=== PATIENT | male | born 1955 | race Caucasian/White ===

== ENCOUNTER 2023-07-08 12:25 | Emergency (ER) | payer MEDICARE, SELFPAY ==
[2023-07-08 12:31] VITALS: BP 174/99; PULSE 79; RESP 22; TEMP 36.4; O2SAT 97; BMI 22.8
--- NOTE | 2023-07-08 12:43 | ED_ITS ---
HPI - URI/Sore Throat General Chief Complaint: Upper Respiratory Infection Stated Complaint: THROAT PAIN Time Seen by Provider: 07/08/23 12:31 Source: patient History of Present Illness HPI Narrative: 68-year-old male presents for cough. He's been sick for almost 2 weeks and has been coughing up thick green phlegm. He was seen at an urgent care center on July 03 and was diagnosed with laryngitis. He's not had a fever. No vomiting or diarrhea. Related Data Home Medications Medication Instructions Recorded Confirmed albuterol sulfate 90 mcg/actuation 2 puff inhalation Q4H PRN 07/08/23 07/08/23 aerosol inhaler shortness of breath or wheezing amitriptyline 25 mg tablet 25 mg PO DAILY 07/08/23 07/08/23 bisoprolol 5 1 tab PO DAILY 07/08/23 07/08/23 mg-hydrochlorothiazide 6.25 mg tablet lisinopril 10 mg tablet 10 mg PO DAILY 07/08/23 07/08/23 Previous Rx's Medication Instructions Recorded benzonatate 100 mg capsule 100 mg PO TID PRN cough #20 caps 07/08/23 doxycycline hyclate 100 mg capsule 100 mg PO BID 10 days #20 caps 07/08/23 Allergies Allergy/AdvReac Type Severity Reaction Status Date / Time No Known Drug Allergies Allergy Verified 07/08/23 12:37 Review of Systems ROS Narrative A ten point review of systems is negative except as noted above. Exam Narrative Exam Narrative: Nurses note and vital signs reviewed and patient is not hypoxic. General: The patient appears well and in no apparent distress. Patient is resting comfortably on cart. Skin: Warm, dry, no pallor noted. There is no rash noted. Head: Normocephalic, atraumatic Eye: Normal conjunctiva, no drainage, EOMI. PERRL Ears, Nose, Mouth, and Throat: oral mucosa is moist. Nares patent. Mouth without vesicles. Ear canals patent. Tm's without Erythema Cardiovascular: Regular Rate and Rhythm Respiratory: Patient is in no distress, no accessory muscle use, lungs show very minimal rhonchi on the right side Back: non-tender GI: soft and nontender Musculoskeletal: The patient has no evidence of calf tenderness, no pitting edema, symmetrical pulses noted bilaterally Neurological: A&O, normal speech Psychiatric: Cooperative Constitutional Vital Signs, click to edit/add: Last Vital Signs Temp 97.5 F L 07/08/23 12:31 Pulse 79 07/08/23 12:31 Resp 22 07/08/23 12:31 BP 174/99 H 07/08/23 12:31 Pulse Ox 97 07/08/23 12:31 O2 Del Method Room Air 07/08/23 12:31 Course Vital Signs Vital signs: Vital Signs Temperature 97.5 F L 07/08/23 12:31 Pulse Rate 79 07/08/23 12:31 Respiratory Rate 22 07/08/23 12:31 Blood Pressure 174/99 H 07/08/23 12:31 Pulse Oximetry 97 07/08/23 12:31 Oxygen Delivery Method Room Air 07/08/23 12:31 Temperature 97.5 F L 07/08/23 12:31 Pulse Rate 79 07/08/23 12:31 Respiratory Rate 22 07/08/23 12:31 Blood Pressure 174/99 H 07/08/23 12:31 Pulse Oximetry 97 07/08/23 12:31 Oxygen Delivery Method Room Air 07/08/23 12:31 MDM - URI/Sore Throat MDM Narrative Medical decision making narrative: Covid and influenza tests are negative. Chest x-ray shows no acute findings. Treatment diagnosis and follow-up were discussed with the patient. Differential Diagnosis Differential diagnosis: Likely upper respiratory infection, viral infection, bronchitis and other (Covid, pneumonia) Lab Data Attestation: I reviewed the patient's lab results. Labs: Lab Results 07/08/23 Range/Units 12:35 Influenza Type A Ag Negative Influenza Type B Ag Negative SARS-CoV-2 Ag (CV2AG) Negative (NEGATIVE) Streptococcus Screen Negative Imaging Data Chest x-ray: Radiologist's impression: Procedure: XR chest 1V EXAMINATION: XR chest 1V HISTORY: cough COMPARISON: No relevant comparison available. TECHNIQUE: AP portable FINDINGS: LUNGS: No significant pulmonary parenchymal abnormalities. VASCULATURE: No increased pulmonary vasculature. PLEURA: No pneumothorax, effusion, or pleural thickening. CARDIAC: No cardiomegaly or cardiac silhouette abnormality. MEDIASTINUM: No visible mass or adenopathy. BONES: No fracture or visible bone lesion. OTHER: Negative. IMPRESSION: No acute cardiopulmonary process Electronically authenticated by: ARNOLDO GIVENS Date: 07/08/2023 Discharge Plan Discharge Chief Complaint: Upper Respiratory Infection Clinical Impression: Upper respiratory infection Patient Disposition: Home, Self-Care Time of Disposition Decision: 13:24 Condition: Good Mode of Transportation: Private Vehicle Prescriptions / Home Meds: New doxycycline hyclate 100 mg capsule 100 mg PO BID 10 Days Qty: 20 0RF benzonatate 100 mg capsule 100 mg PO TID PRN (Reason: cough) Qty: 20 0RF No Action albuterol sulfate 90 mcg/actuation HFA aerosol inhaler 2 puff INHALATION Q4H PRN (Reason: shortness of breath or wheezing) amitriptyline 25 mg tablet 25 mg PO DAILY bisoprolol-hydrochlorothiazide 5-6.25 mg tablet 1 tab PO DAILY lisinopril 10 mg tablet 10 mg PO DAILY Instructions: Upper Respiratory Infection (ED) Stand Alone Forms: Portal Instructions Referrals: [facility] [Primary Care Provider] - 1 week
--- NOTE | 2023-07-08 12:53 | XR_ITS ---
The [address] [address] Patient Name: KEIRY DUNN MRN: [id number] date: 1955 Sex: M Assigned Patient Location: ER Current Patient Location: ER Accession/Order Number: [id number] Exam Date: 07/08/2023 12:45 Report Date: 07/08/2023 13:03 At the request of: JEWEL LEONE Procedure: XR chest 1V EXAMINATION: XR chest 1V HISTORY: cough COMPARISON: No relevant comparison available. TECHNIQUE: AP portable FINDINGS: LUNGS: No significant pulmonary parenchymal abnormalities. VASCULATURE: No increased pulmonary vasculature. PLEURA: No pneumothorax, effusion, or pleural thickening. CARDIAC: No cardiomegaly or cardiac silhouette abnormality. MEDIASTINUM: No visible mass or adenopathy. BONES: No fracture or visible bone lesion. OTHER: Negative. XR/XR chest 1V IMPRESSION: No acute cardiopulmonary process Electronically authenticated by: ARNOLDO GIVENS Date: 07/08/2023 13:03
[2023-07-08 13:11] LABS: Influenza Virus A Antigen Negative; Influenza Virus B Antigen Negative; Internal Control Within Normal Limits; Strep A Antigen Screen Negative
[2023-07-08 13:17] LABS: SARS-CoV-2 Ag NEGATIVE (NEGATIVE)
== END 2023-07-08 13:45 | disposition home or self-care (01) ==
PROVIDERS: Emergency Provider Emergency Medicine
DX: J06.9 Acute upper respiratory infection, unspecified (principal); Z79.899 Other long term (current) drug therapy
CPT/HCPCS: 71045; 87070; 87635; 87804; 87811; 87880; 99284